=== PATIENT | male | born 1980 | race American Indian/Alaskan Native ===

== ENCOUNTER 2016-08-22 14:23 | Emergency (ER) | payer OTHER ==
[2016-08-22 14:53] VITALS: BP 125/76
--- NOTE | 2016-08-22 15:07 | Emergency Department Report ---
Chief Complaint: Chest Pain Stated Complaint: CHEST PAIN Time Seen by Provider: 08/22/16 14:50 - HPI History of Present Illness: cp sp ablation this y at [facility] dizzy hx wpw norvasc v[facility] records requested - ROS Review of Systems: as noted - Exam Vital Signs: Vital Signs 08/22/16 14:49 Temperature 98.5 F Pulse Rate 50 L Respiratory 18 Rate Blood Pressure 125/76 O2 Sat by Pulse 100 Oximetry MSE screening note: Focused history and physical exam performed. Due to findings the following was ordered: ED Disposition for MSE Condition: Stable
[2016-08-22 16:11] LABS: Basophils % (Auto) 0.9 % (0.0-1.8); Eosinophils % (Auto) 3.5 % (0.0-4.3); Hematocrit 43.2 % (35.5-45.6); Hemoglobin 14.1 gm/dl (11.8-15.2); Mean Corpuscular HGB Conc 33 % (32-34); Mean Corpuscular Hemoglobin 29 pg (28-32); Mean Corpuscular Volume 90 fl (84-94); Platelet Count 213 K/mm3 (140-440); Red Blood Count 4.81 M/mm3 (3.65-5.03); Red Cell Distribution Width 13.9 % (13.2-15.2); White Blood Count 4.5 K/mm3 (4.5-11.0)
[2016-08-22 16:30] LABS: Anion Gap 16 mmol/L; Blood Urea Nitrogen 12 mg/dL (9-20); Carbon Dioxide 28 mmol/L (22-30); Chloride 101.5 mmol/L (98-107); Glucose 93 mg/dL (75-100); Potassium 4.2 mmol/L (3.6-5.0); Sodium 141 mmol/L (137-145)
[2016-08-22 16:32] LABS: Alanine Aminotransferase 8 units/L (7-56); Albumin 4.3 g/dL (3.9-5); Albumin/Globulin Ratio 1.7 %; Alkaline Phosphatase 82 units/L (35-129); Bilirubin,Total 0.3 mg/dL (0.1-1.2); Total Protein 6.8 g/dL (6.3-8.2)
[2016-08-22 16:35] LABS: Bilirubin,Direct < 0.2 mg/dL (0-0.2); Bilirubin,Indirect 0.1 mg/dL
== END 2016-08-22 22:00 | disposition left against medical advice (07) ==
LOC: ED 14:23
DX: R07.9 Chest pain, unspecified (principal); Z53.21 Procedure and treatment not carried out due to patient leaving prior to being seen by health care provider
CPT/HCPCS: 36415; 80048; 80074; 84484; 85025; 93005; 93010